=== PATIENT | female | born 1970 | race Caucasian/White ===

== ENCOUNTER 2018-11-21 02:23 | Emergency (ER) | payer SELFPAY ==
[~2018-11-21] VITALS: Ht 157.5 cm; Wt 72.9 kg
[2018-11-21 02:30] VITALS: Ht 157.5 cm; Wt 72.9 kg
[2018-11-21] MEDS ORDERED: KETOROLAC 30 MG INJ IM STA (03:49)
[2018-11-21] MEDS ORDERED: IBUP-1542 PO (05:39)
[2018-11-21] MEDS ORDERED: ACET500C5 PO (05:39)
[2018-11-21 05:54] VITALS: BP 126/75; PULSE 69; RESP 18
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
== END 2018-11-21 05:56 | disposition home or self-care (01) ==
LOC: FTE 02:23
DX: M25.531 Pain in right wrist (principal)
CPT/HCPCS: 73110; 81025; 96372; 99284; J1885